=== PATIENT | male | born 1955 | race African-American/Black ===

== ENCOUNTER 2017-07-14 05:50 | Day surgery (SDC) | payer BC ==
[~2017-07-14] VITALS: Ht 188 cm; Wt 102.1 kg
[~2017-07-14 05:50] MED LIST: ALLO300T2 PO; ASPI-1159 PO; METO25TA6 PO; PRAS10TA6 PO; RAMI5CAP17 PO; SIMV40TA5 PO
[2017-07-14] MEDS ORDERED: LACTATED RINGERS 1,000 ML IV SCH (06:00)
[2017-07-14] MEDS ORDERED: FENTANYL CITRATE/PF 50MCG/ML 2ML VIAL ONE (06:58)
[2017-07-14] MEDS ORDERED: MIDAZOLAM HCL 2 MG/2 ML VIAL ONE (06:59)
[2017-07-14] MEDS ORDERED: HYDROMORPHONE HCL/PF 2MG/ML CPJ IV PRN (08:15)
[2017-07-14] MEDS ORDERED: ONDANSETRON HCL 4MG/2ML VIAL IV PRN (08:15)
[2017-07-14] MEDS ORDERED: LABETALOL HCL 20MG/4ML CARPUJECT IV PRN (08:15)
[2017-07-14] MEDS ORDERED: MEPERIDINE HCL/PF 25MG/ML CPJ IV PRN (08:15)
[2017-07-14] MEDS ORDERED: EPHEDRINE SULFATE 50MG/ML VIAL ONE (08:56)
[2017-07-14] MEDS ORDERED: SKIN ADHESIVE 0.7 GM EA TOP ONE (15:25)
[2017-07-14] MEDS ORDERED: BUPIVACAINE HCL 0.5% (5MG/ML) 50ML ONE (15:25)
== END 2017-07-14 10:40 | disposition home or self-care (01) ==
LOC: OR 05:50
PROVIDERS: ATTEND Surgery
DX: K40.90 Unilateral inguinal hernia, without obstruction or gangrene, not specified as recurrent (principal); I10 Essential (primary) hypertension; E78.00 Pure hypercholesterolemia, unspecified; I25.10 Atherosclerotic heart disease of native coronary artery without angina pectoris; M10.9 Gout, unspecified; I25.2 Old myocardial infarction; E78.5 Hyperlipidemia, unspecified; Z79.82 Long term (current) use of aspirin; Z79.899 Other long term (current) drug therapy; Z86.79 Personal history of other diseases of the circulatory system
CPT/HCPCS: 49650; C1781; G0168; J0171; J2250; J3010; J3490